=== PATIENT | male | born 1955 | race Caucasian/White ===

== ENCOUNTER 2016-11-23 06:27 | Inpatient (IN) | payer OTHER ==
[2016-11-23] MEDS ORDERED: SODIUM CHLORIDE 1,000 ML IV STA (06:38)
[2016-11-23] MEDS ORDERED: ROCEPHIN 1 GM in SODIUM CHLORIDE 50 ML IV STA (06:38)
[2016-11-23] MEDS ORDERED: DUONEB NEB STA ×2 (06:38→07:27)
[2016-11-23 06:42] LABS: ABG BASE EXCESS 1 (-2.0-2.0); ABG HCO3 25 (22.0-26.0); ABG PH 7.44 (7.35-7.45); ABG TCO2 26 (22.0-28.0)
--- NOTE | 2016-11-23 06:54 | ED.PDOC ---
General Stated Complaint: hes got fever, urinary frequency, sob, and diarrhea Time Seen by Physician: 06:35 Mode of Arrival: Walk-In Information Source: Patient, Family Exam Limitations: No limitations Nursing and Triage Documentation Reviewed and Agree: Yes <ROBERTO CONNER - Last Filed: 11/23/16 06:51> Stated Complaint: Fever, chills, diarrhea, urinary burning/frequency/pain x 4 days. Incontinence started today. Became more short of air than normally.[End] SICK FOUR DAYS, FEVER, UNCONTROLLABLE DIARRHEA, URGENCY AND FREQUENCY, INCONTINENCE. RESPIRATORY DIFFICULTY NOTED[End]diarrhea resolved with generic OTC meds, frequency and urgensy present since he was a child <JESSE JAIME JR - Last Filed: 11/23/16 20:19> ED Provider: Dr. JESSE JAIME JR Chief Complaint: Fever Primary Care Provider: [facility] Miscellaneous Complaint Exam - Febrile Illness/Adult Complaint/Exam Onset/Duration: 24hrs Symptoms Are: Still present Timing: Intermittent Initial Severity: Mild Current Severity: Moderate Aggravating: Reports: None Alleviating: Reports: None Associated Signs and Symptoms: Reports: Short of air, Cough, Chills. Denies: Headache, Fluid intake, Sore throat, Nausea, Vomiting, Diaphoresis, Dysuria, Arthralgia, Stiff neck, Myalgia, Rash, Altered mental status Related History: Reports: Similar episode Pseudomonas Risk Factors: Reports: Chronic Lung Disease Serious Bacterial Infection Risk Factors: Reports: None Current Antibiotic Use: No Differential Diagnoses: Bacteremia, Fever of Unknown Origin, Pyelonephritis Quality Indicators For Pneumonia/CAP: Blood Cultures-SCU admit, Antibiotics in 6hr-admit, SpO2 assessed, Empiric Antibiotic Rx, Vital signs, Mental status assessed Quality Indicator For Non-Traumatic Chest Pain/Syncope: EKG Performed Patient Advised to Stop Smoking: No <ROBERTO CONNER - Last Filed: 11/23/16 06:51> Review of Systems - Review Of Systems Constitutional: Reports: Chills, Fever, Weakness, Sweats, Loss of appetite Eyes: Reports: No symptoms Ears, Nose, Mouth, Throat: Reports: No symptoms Respiratory: Reports: Cough Cardiac: Reports: No symptoms GI: Reports: Diarrhea, Nausea, Poor appetite : Reports: Dysuria, Frequency, Flank pain, Incontinence, Pain Musculoskeletal: Reports: No symptoms Skin: Reports: No symptoms Neurological: Reports: No symptoms Endocrine: Reports: No symptoms Hematologic/Lymphatic: Reports: No symptoms All Other Systems: Reviewed and Negative <ROBERTO CONNER - Last Filed: 11/23/16 06:51> Past Medical History - Past Medical History Endocrine: Reports: Unknown Cardiovascular: Reports: Unknown Respiratory: Reports: COPD Hematological: Reports: Unknown Gastrointestinal: Reports: Unknown Genitourinary: Reports: Unknown Neuro/Psych: Reports: Unknown Musculoskeletal: Reports: Unknown Cancer: Reports: Unknown - Surgical History General Surgical History: Reports: Unknown - Family History Family History: Reports: Unknown - Social History Smoking Status: Current every day smoker Hx Substance Use: No Alcohol Screening: None Lives: With family - Immunizations Tetanus Shot up to Date: Yes <RAZROSIOROBERTO - Last Filed: 11/23/16 06:51> - Past Medical History Endocrine: Reports: None Cardiovascular: Reports: None Respiratory: Reports: COPD Hematological: Reports: None Gastrointestinal: Reports: None Genitourinary: Reports: Kidney stones ( 2014?-never evaluated) Musculoskeletal: Reports: Arthritis Cancer: Reports: None - Surgical History General Surgical History: Reports: Tonsillectomy (AND right tympanoplasty), Orthopedic (bilateral hip replacement ( and bilateral revisions); left reverse shoulder replacement; right knee arthroscopy), Back Surgery (L345?fusion) - Social History Smoking Status: Current every day smoker (only 5-6 a day now) Smoking Cessation Counseling Time: > 3 min - 10 min Lives: With family ( 14 years) <JESSE JAIME JR - Last Filed: 11/23/16 20:19> Physical Exam - Physical Exam Appearance: Ill-appearing, No pain distress, Well-nourished Ill-appearing: Moderate Eyes: JAMIE, EOMI, Conjunctiva clear ENT: Ears normal, Nose normal, Oropharynx normal Respiratory: Airway patent, Breath sounds clear, Breath sounds equal, Respirations nonlabored Cardiovascular: RRR, Pulses normal, No rub, No murmur, Tachycardia GI/: Soft, Nontender, No masses, Bowel sounds normal, No Organomegaly Musculoskeletal: Normal strength, ROM intact, No edema, No calf tenderness Skin: Warm, Dry, Normal color Neurological: Sensation intact, Motor intact, Reflexes intact, Cranial nerves intact, Alert, Oriented Psychiatric: Affect appropriate, Mood appropriate <ROBERTO CONENR - Last Filed: 11/23/16 06:51> - Physical Exam Appearance: Ill-appearing, Thin Pain Distress: Mild Neck: Supple Respiratory: Airway patent, Breath sounds diminished Cardiovascular: RRR GI/: Soft, Bowel sounds hypoactive Musculoskeletal: Normal strength, ROM intact Skin: Warm, Pale Neurological: Sensation intact, Alert, Oriented Psychiatric: Affect appropriate <JESSE JAIME - Last Filed: 11/23/16 20:19> Physician Notification - Case Discussed Physician Notified: dr jaime Time of Notification: 06:57 <ROBERTO CONNER - Last Filed: 11/23/16 06:51> - Case Discussed Time of Notification: 07:18 (pt back from xray) <JESSE JAIME JR - Last Filed: 11/23/16 20:19> Critical Care Note - Critical Care Note Total Time (mins): 60 <JESSE JAIME JR - Last Filed: 11/23/16 20:19> Course - Course Hematology/Chemistry: 11/23/16 07:00 11/23/16 07:00 <JESSE JAIME JR - Last Filed: 11/23/16 20:19> - Course Orders, Labs, Meds: Lab Review 11/23/16 11/23/16 11/23/16 06:37 07:00 07:05 WBC 8.70 RBC 5.39 Hgb 13.6 L Hct 41.5 L MCV 77.0 L MCH 25.2 L MCHC 32.8 RDW Coeff of Kathy 15.2 H Plt Count 233 Immature Gran % (Auto) 0.5 Neut % (Auto) 77.8 Lymph % (Auto) 15.2 Antelope % (Auto) 6.2 Eos % (Auto) 0.0 Baso % (Auto) 0.3 Immature Gran # (Auto) 0.0 Neut # 6.8 Lymph # 1.3 Antelope # 0.5 Eos # 0.0 Baso # 0.0 Puncture Site L rad O2 Saturation 81.0 L ABG pH 7.44 ABG pCO2 37.0 ABG pO2 44.0 L* ABG HCO3 25 ABG Total CO2 26 ABG Base Excess 1 Herve Test + FiO2 % 21.0 Sodium 128 L Potassium 4.5 Chloride 95 L Carbon Dioxide 25 Anion Gap 12.5 BUN 35 H Creatinine 1.23 H Estimated GFR (MDRD) 60.00 BUN/Creatinine Ratio 28.45 Glucose 185 H Lactic Acid 10.0 Calcium 8.9 Total Bilirubin 0.34 AST 44 H ALT 21 Alkaline Phosphatase 74 Total Protein 7.5 Albumin 3.0 L Globulin 4.5 Albumin/Globulin Ratio 0.67 Amylase 59 Lipase 30 Procalcitonin 0.58 Urine Color Urine Clarity Urine pH Ur Specific [place] Urine Protein Urine Glucose (UA) Urine Ketones Urine Blood Urine Nitrite Urine Bilirubin Urine Urobilinogen Ur Leukocyte Esterase Urine Microscopic RBC Urine Microscopic WBC Ur Squamous Epith Cells Triple Phos Crystals Urine Bacteria Influenza A (Rapid) Negative Influenza B (Rapid) Negative 11/23/16 07:25 WBC RBC Hgb Hct MCV MCH MCHC RDW Coeff of Kathy Plt Count Immature Gran % (Auto) Neut % (Auto) Lymph % (Auto) Antelope % (Auto) Eos % (Auto) Baso % (Auto) Immature Gran # (Auto) Neut # Lymph # Antelope # Eos # Baso # Puncture Site O2 Saturation ABG pH ABG pCO2 ABG pO2 ABG HCO3 ABG Total CO2 ABG Base Excess Herve Test FiO2 % Sodium Potassium Chloride Carbon Dioxide Anion Gap BUN Creatinine Estimated GFR (MDRD) BUN/Creatinine Ratio Glucose Lactic Acid Calcium Total Bilirubin AST ALT Alkaline Phosphatase Total Protein Albumin Globulin Albumin/Globulin Ratio Amylase Lipase Procalcitonin Urine Color [place] Urine Clarity Cloudy Urine pH 7.5 Ur Specific [place] 1.020 Urine Protein 3+ Urine Glucose (UA) Trace Urine Ketones Trace Urine Blood 1+ Urine Nitrite Positive Urine Bilirubin 1+ Urine Urobilinogen 2.0 Ur Leukocyte Esterase 3+ Urine Microscopic RBC 2-5 Urine Microscopic WBC 20-30 Ur Squamous Epith Cells Not present Triple Phos Crystals 2+ Urine Bacteria 4+ Influenza A (Rapid) Influenza B (Rapid) Orders Category Date Time Status ADMIT PATIENT INPATIENT .TO [facility] (MONITORED BED) ADMISSION 11/23/16 08: 21 Active ABG DRAW REQUEST Stat CARDIO 11/23/16 06:37 Completed EKG-(ED ONLY) Stat CARDIO 11/23/16 06:37 Completed NEBULIZER TREATMENT Routine CARDIO 11/23/16 08:31 Active NEBULIZER TREATMENT Stat CARDIO 11/23/16 06:38 Completed NEBULIZER TREATMENT Stat CARDIO 11/23/16 07:27 Completed OXYGEN Routine CARDIO 11/23/16 08:26 Active ACTIVITY .Early Mobilization for VTE Prevention CARE 11/23/16 08:21 Active BLOOD GLUCOSE MONITORING 0630,1100,1700,2100 CARE 11/23/16 08:27 Active INTAKE & OUTPUT Q8HR CARE 11/23/16 08:21 Active TELEMETRY MONITORING TELE CARE 11/23/16 08:26 Active VITAL SIGNS Q4HR CARE 11/23/16 08:21 Active REGULAR DIET DIETARY 11/23/16 Lunch Ordered Block Tester [ED APPLICATION SYSTEMS ARCHITECT APPLIED] .ONCE EMERGENCY 11/23/16 06:40 Active ED BLADDER SCAN .ONCE EMERGENCY 11/23/16 06:39 Active Sosa [ED CATHETER INSERTION AND CARE] .ONCE EMERGENCY 11/23/16 07:20 Active IV [ED IV/MEDIPORT/POWERPORT] .ONCE EMERGENCY 11/23/16 06:38 Active OXYGEN [ED APPLY O2] .ONCE EMERGENCY 11/23/16 07:01 Active ABG Stat LAB 11/23/16 06:37 Completed AMYLASE Stat LAB 11/23/16 07:00 Completed BLOOD CULTURE Stat LAB 11/23/16 07:00 Received CBC W/ AUTO DIFF DAILY@0600 LAB 11/24/16 06:00 Ordered CBC W/ AUTO DIFF DAILY@0600 LAB 11/25/16 06:00 Ordered CBC W/ AUTO DIFF DAILY@0600 LAB 11/26/16 06:00 Ordered CBC W/ AUTO DIFF DAILY@0600 LAB 11/27/16 06:00 Ordered CBC W/ AUTO DIFF DAILY@0600 LAB 11/28/16 06:00 Ordered CBC W/ AUTO DIFF DAILY@0600 LAB 11/29/16 06:00 Ordered CBC W/ AUTO DIFF DAILY@0600 LAB 11/30/16 06:00 Ordered CBC W/ AUTO DIFF DAILY@0600 LAB 12/01/16 06:00 Ordered CBC W/ AUTO DIFF DAILY@0600 LAB 12/02/16 06:00 Ordered CBC W/ AUTO DIFF DAILY@0600 LAB 12/03/16 06:00 Ordered CBC W/ AUTO DIFF DAILY@0600 LAB 12/04/16 06:00 Ordered CBC W/ AUTO DIFF DAILY@0600 LAB 12/05/16 06:00 Ordered CBC W/ AUTO DIFF DAILY@0600 LAB 12/06/16 06:00 Ordered CBC W/ AUTO DIFF DAILY@0600 LAB 12/07/16 06:00 Ordered CBC W/ AUTO DIFF DAILY@0600 LAB 12/08/16 06:00 Ordered CBC W/ AUTO DIFF DAILY@0600 LAB 12/09/16 06:00 Ordered CBC W/ AUTO DIFF DAILY@0600 LAB 12/10/16 06:00 Ordered CBC W/ AUTO DIFF DAILY@0600 LAB 12/11/16 06:00 Ordered CBC W/ AUTO DIFF DAILY@0600 LAB 12/12/16 06:00 Ordered CBC W/ AUTO DIFF DAILY@0600 LAB 12/13/16 06:00 Ordered CBC W/ AUTO DIFF Stat LAB 11/23/16 07:00 Completed COMPREHENSIVE METABOLIC PANEL DAILY@0600 LAB 11/24/16 06:00 Ordered COMPREHENSIVE METABOLIC PANEL DAILY@0600 LAB 11/25/16 06:00 Ordered COMPREHENSIVE METABOLIC PANEL DAILY@0600 LAB 11/26/16 06:00 Ordered COMPREHENSIVE METABOLIC PANEL DAILY@0600 LAB 11/27/16 06:00 Ordered COMPREHENSIVE METABOLIC PANEL DAILY@0600 LAB 11/28/16 06:00 Ordered COMPREHENSIVE METABOLIC PANEL DAILY@0600 LAB 11/29/16 06:00 Ordered COMPREHENSIVE METABOLIC PANEL DAILY@0600 LAB 11/30/16 06:00 Ordered COMPREHENSIVE METABOLIC PANEL DAILY@0600 LAB 12/01/16 06:00 Ordered COMPREHENSIVE METABOLIC PANEL DAILY@0600 LAB 12/02/16 06:00 Ordered COMPREHENSIVE METABOLIC PANEL DAILY@0600 LAB 12/03/16 06:00 Ordered COMPREHENSIVE METABOLIC PANEL DAILY@0600 LAB 12/04/16 06:00 Ordered COMPREHENSIVE METABOLIC PANEL DAILY@0600 LAB 12/05/16 06:00 Ordered COMPREHENSIVE METABOLIC PANEL DAILY@0600 LAB 12/06/16 06:00 Ordered COMPREHENSIVE METABOLIC PANEL DAILY@0600 LAB 12/07/16 06:00 Ordered COMPREHENSIVE METABOLIC PANEL DAILY@0600 LAB 12/08/16 06:00 Ordered COMPREHENSIVE METABOLIC PANEL DAILY@0600 LAB 12/09/16 06:00 Ordered COMPREHENSIVE METABOLIC PANEL DAILY@0600 LAB 12/10/16 06:00 Ordered COMPREHENSIVE METABOLIC PANEL DAILY@0600 LAB 12/11/16 06:00 Ordered COMPREHENSIVE METABOLIC PANEL DAILY@0600 LAB 12/12/16 06:00 Ordered COMPREHENSIVE METABOLIC PANEL DAILY@0600 LAB 12/13/16 06:00 Ordered COMPREHENSIVE METABOLIC PANEL Stat LAB 11/23/16 07:00 Completed LACTIC ACID Stat LAB 11/23/16 07:00 Completed LIPASE Stat LAB 11/23/16 07:00 Completed MOLECULAR GROUP A STREP Stat LAB 11/23/16 07:05 Results OCCULT BLOOD, STOOL Stat LAB 11/23/16 07:47 Uncollected PROCALCITONIN Stat LAB 11/23/16 07:00 Completed RAPID FLU A/B Stat LAB 11/23/16 07:05 Completed STREP SCREEN Stat LAB 11/23/16 07:05 Results URINALYSIS C & S IF INDICATED Stat LAB 11/23/16 07:25 Completed URINE CULTURE Routine LAB 11/23/16 07:25 Received 0.9 % Sodium Chloride [Saline Flush] MEDS 11/23/16 06:38 Active 1 syr IVF PRN PRN Acetaminophen [Tylenol] MEDS 11/23/16 08:21 Active 650 mg PO Q4H PRN Albuterol Sulfate [Proair Hfa] MEDS 11/23/16 08:30 Active 1 - 2 puff IH Q4-6H PRN Budesonide/Formoterol Fumarate [Symbicort 160-4.5 Mcg MEDS 11/23/16 09:00 Active Inhaler] 1 puff IH BID Ceftriaxone Sodium [Rocephin] MEDS 11/23/16 07:48 Discontinued 1 gm .ROUTE .STK-MED ONE Ceftriaxone Sodium [Rocephin] 1 gm MEDS 11/23/16 06:38 Discontinued 0.9 % Sodium Chloride [Sodium Chloride] 50 ml IV ONCE Dexamethasone 4 mg/ml Inj [Decadron 4 mg/ml Sdv] MEDS 11/23/16 08:01 Discontinued 8 mg IVP ONCE STA Enoxaparin Sodium [Lovenox] MEDS 11/23/16 09:00 Active 40 mg SUBCUT DAILY Ipratropium/Albuterol Neb [Duoneb] MEDS 11/23/16 06:38 Discontinued 1 vial NEB ONCE STA Ipratropium/Albuterol Neb [Duoneb] MEDS 11/23/16 07:27 Discontinued 1 vial NEB ONCE STA Ipratropium/Albuterol Neb [Duoneb] MEDS 11/23/16 12:00 Active 1 vial NEB RTQ6H Lidocaine HCl [Uro-Jet] MEDS 11/23/16 07:20 Discontinued 10 ml MUCOUSMEMB ONCE STA Nicotine 21 mg [Nicoderm 21 mg] MEDS 11/23/16 07:33 Discontinued 1 patch TD ONCE STA Sodium Chloride 0.9% [Sodium Chloride] 1,000 ml MEDS 11/23/16 06:38 Discontinued IV 125 mls/hr Sodium Chloride 0.9% [Sodium Chloride] 1,000 ml MEDS 11/23/16 08:30 Active IV 75 mls/hr Sodium Chloride 0.9% [Sodium Chloride] 500 ml MEDS 11/23/16 07:19 Discontinued IV BOLUS Tiotropium [place] [Spiriva] MEDS 11/23/16 09:00 Active 1 cap IH DAILY RESUSCITATION STATUS Routine OTHERS 11/23/16 08:[address] ABDOMEN/PELVIS WO CONTRAST Stat RADS 11/23/16 06:[address] CHEST W/O CONTRAST Stat RADS 11/23/16 06:39 Completed Medications Generic Name Dose Route Start Last Admin Trade Name Freq PRN Reason Stop Dose Admin Acetaminophen 650 mg 11/23/16 08:21 Tylenol PO Q4H PRN Mild Pain Albuterol Sulfate 1 - 2 puff 11/23/16 08:30 Proair Hfa IH 11/29/16 23:59 Q4-6H PRN Wheezing Albuterol/Ipratropium 1 vial 11/23/16 12:00 11/23/16 17:19 Duoneb NEB 1 vial RTQ6H CHRISTIAN Administration Budesonide/Formoterol Fumarate 1 puff 11/23/16 09:00 11/23/16 20:12 Symbicort 160-4.5 Mcg Inhaler IH 1 puff BID CHRISTIAN Administration Enoxaparin Sodium 40 mg 11/23/16 09:00 11/23/16 10:16 Lovenox SUBCUT 40 mg DAILY CHRISTIAN Administration Sodium Chloride 1,000 mls @ 75 mls/hr 11/23/16 08:30 11/23/16 15:32 Sodium Chloride IV 75 mls/hr .[id number] CHRISTIAN Administration Azithromycin 500 mg/ Sodium 250 mls @ 125 mls/hr 11/24/16 09:00 Chloride IV DAILY CHRISTIAN Ceftriaxone Sodium 1 gm/ 50 mls @ 75 mls/hr 11/24/16 09:00 Sodium Chloride IV DAILY CHRISTIAN Insulin Human Regular 0 unit 11/23/16 12:28 11/23/16 20:12 Humulin R SUBCUT 6 unit PRN PRN Administration Hyperglycemica Protocol Phenazopyridine HCl 200 mg 11/23/16 08:33 Pyridium PO 11/24/16 21:01 TID PRN Abdominal Pain Sodium Chloride 1 syr 11/23/16 06:38 11/23/16 06:40 Saline Flush IVF 1 syr PRN PRN Administration To flush IV Tiotropium [place] 1 cap 11/23/16 09:00 11/23/16 10:16 Spiriva IH 1 cap DAILY CHRISTIAN Administration Discontinued Medications Generic Name Dose Route Start Last Admin Trade Name Freq PRN Reason Stop Dose Admin Albuterol/Ipratropium 1 vial 11/23/16 06:38 11/23/16 06:35 Duoneb NEB 11/23/16 06:39 1 vial ONCE STA Administration Albuterol/Ipratropium 1 vial 11/23/16 07:27 11/23/16 07:35 Duoneb NEB 11/23/16 07:28 1 vial ONCE STA Administration Dexamethasone Sodium Phosphate 8 mg 11/23/16 08:01 11/23/16 08:16 Decadron 4 Mg/Ml Sdv IVP 11/23/16 08:02 8 mg ONCE STA Administration Ceftriaxone Sodium 1 gm/ 50 mls @ 75 mls/hr 11/23/16 06:38 11/23/16 08:03 Sodium Chloride IV 11/23/16 07:17 75 mls/hr ONCE STA Administration Sodium Chloride 1,000 mls @ 125 mls/hr 11/23/16 06:38 11/23/16 08:16 Sodium Chloride IV 11/23/16 14:37 125 mls/hr .Q8H STA Administration Sodium Chloride 500 mls @ 1,000 mls/hr 11/23/16 07:19 11/23/16 07:47 Sodium Chloride IV 11/23/16 07:48 1,000 mls/hr BOLUS STA Administration Azithromycin 500 mg/ Sodium 250 mls @ 125 mls/hr 11/23/16 08:32 11/23/16 10: 15 Chloride IV 11/23/16 10:31 125 mls/hr ONCE STA Administration Lidocaine HCl 10 ml 11/23/16 07:20 11/23/16 08:23 Uro-Jet MUCOUSMEMB 11/23/16 07:21 Not Given ONCE STA Nicotine 1 patch 11/23/16 07:33 11/23/16 08:23 Nicoderm 21 Mg TD 11/23/16 07:34 Not Given ONCE STA Phenazopyridine HCl 100 mg 11/23/16 08:33 Pyridium PO 11/23/16 08:34 ONCE STA Vital Signs: Temp Pulse Resp BP Pulse Ox 11/23/16 07:53 101.8 F H 113 H 24 85/71 L 90 L 11/23/16 06:31 103.8 F H 125 H 32 H 111/68 82 L Departure <ROBERTO CONNER - Last Filed: 11/23/16 06:51> - Departure Time of Disposition: 08:20 Pt referred to PMD for follow-up: No (hospitalist) <JESSE JAIME JR - Last Filed: 11/23/16 20:19> - Departure Disposition: ADMITTED INPATIENT Discharge Problem: UTI (urinary tract infection) Qualifiers: Urinary tract infection type: acute cystitis Hematuria presence: without hematuria Qualifier Code: (N30.00) Acute cystitis without hematuria COPD (chronic obstructive pulmonary disease) Qualifiers: Emphysema type: unspecified Pneumonia Qualifiers: Pneumonia type: due to unspecified organism Laterality: bilateral Lung location : lower lobe of lung Qualifier Code: (J18.9) Pneumonia, unspecified organism Condition: Stable Allergies/Adverse Reactions: Allergies No Known Allergies Allergy (Verified 11/23/16 06:42)
[2016-11-23 07:10] LABS: BASOPHILS % (AUTO) 0.3 % (0.0-3.0); HEMATOCRIT 41.5 % (42.0-52.0); HEMOGLOBIN 13.6 g/dl (14.0-18.0); IMMATURE GRANULOCYTE % (AUTO) 0.5 % (0.0-5.0); LYMPHOCYTES # (AUTO) 1.3 K/uL (0.60-3.4); LYMPHOCYTES % (AUTO) 15.2 (10.0-50.0); MEAN CORPUSCULAR HEMOGLOBIN 25.2 pg (27.0-31.0); MEAN CORPUSCULAR HGB CONC 32.8 (31.8-35.4); MONOCYTES # (AUTO) 0.5 K/uL (0.4-2.0); MONOCYTES % (AUTO) 6.2 (0-10); NEUTROPHILS # (AUTO) 6.8 K/ul (2.0-6.9); NEUTROPHILS % (AUTO) 77.8; PLATELET COUNT 233 10^3/uL (140-440); RED BLOOD COUNT 5.39 10^6/ul (4.70-6.10)
[2016-11-23] MEDS ORDERED: SODIUM CHLORIDE 500 ML IV STA (07:19)
[2016-11-23] MEDS ORDERED: URO-JET MUCOUSMEMB STA (07:20)
[2016-11-23 07:30] LABS: FLU INTERNAL QC INTERNAL QC VALID; RAPID FLU A NEGATIVE (NEGATIVE); RAPID FLU B NEGATIVE (NEGATIVE)
[2016-11-23 07:31] LABS: CALCIUM 8.9 mg/dL (8.2-10.2); POTASSIUM 4.5 mmol/L (3.5-5.1); TOTAL PROTEIN 7.5 g/dL (5.8-8.1)
[2016-11-23 07:32] LABS: ALBUMIN/GLOBULIN RATIO 0.67; ANION GAP 12.5; BILIRUBIN,TOTAL 0.34 mg/dL (0.00-1.20); BUN/CREATININE RATIO 28.45; CREATININE 1.23 mg/dL (0.60-1.10)
[2016-11-23] MEDS ORDERED: NICODERM 21 MG TD STA (07:33)
--- NOTE | 2016-11-23 07:34 | CT ---
EXAM: CT Abdomen without contrast. CT Pelvis without contrast. HISTORY: Diarrhea. Fartun area. COMPARISON: None available. TECHNIQUE: Multiple axial images of the abdomen and pelvis were obtained without intravenous contra st. Images were reformatted in the coronal plane. FINDINGS: Please note that evaluation of the abdominal and pelvic structures is limited due to lack of intravenous contrast. Bronchial thickening seen in both lung bases with scattered small nodular densities bilaterally, gre ater in the left lower lobe with a more focal nodular area of consolidation measuring 2.9 x 2.5 cm i n the anterior left lung base on axial image 12. Degenerative changes present in the spine. There has been bilateral hip arthroplasty. The liver, gallbladder, pancreas, spleen, adrenal glands, and kidneys demonstrate normal contour. N o calcified renal stones or hydronephrosis detected. The bowel is normal in course and caliber without evidence for obstruction or inflammatory process. Colonic diverticulosis noted. The appendix is normal. There is diffuse urinary bladder wall thick ening which is not fully characterized due to beam hardening artifact from hip arthroplasty hardware . Mild inflammation surrounds the urinary bladder. No free fluid or free air identified. Atherosc lerotic calcifications are present. IMPRESSION: 1. Urinary bladder wall thickening suggesting cystitis. Follow-up is recommended as other etiologi es of bladder wall thickening not excluded. 2. Colonic diverticulosis. 3. Bibasilar bronchial thickening and nodular densities with more dominant left basilar consolidati on could represent pneumonitis. Refer to chest CT report for details.
--- NOTE | 2016-11-23 07:35 | CT ---
EXAM: CT chest without contrast. HISTORY: Cough, dyspnea. COMPARISON: 08/06/2012. TECHNIQUE: Multiple axial images of the chest were obtained without intravenous contrast. Images w ere reformatted in the sagittal and coronal planes. FINDINGS: Bilateral bronchial thickening noted with numerous scattered random and centrilobular nod ules throughout both lungs. There are multiple more discrete foci of consolidation present, largest measuring 2.9 x 2.5 cm in the anterior left lower lobe on axial image 65. No pleural effusion or p neumothorax identified. Evaluation for lymphadenopathy is limited due to lack of intravenous contrast. Subcarinal lymph nod e measures up to 1.3 cm short axis on axial image 37. Heart size is normal. There is no pericardial effusion. Atherosclerotic calcifications are present . Limited images of the upper abdomen demonstrate no acute finding. There has been previous left shou lder arthroplasty. Degenerative changes present throughout the spine. IMPRESSION: Diffuse bilateral bronchial thickening, scattered nodules and areas of consolidation likely represen ting pneumonitis. Follow-up chest CT in 3 months recommended for reassessment.
[2016-11-23 07:37] LABS: BILIRUBIN,URINE 1+ (NEGATIVE); KETONES,URINE Trace (NEGATIVE); LEUKOCYTE ESTERASE ,URINE 3+ (NEGATIVE); NITRITE,URINE Positive (NEGATIVE); PH,URINE 7.5 (5-9); PROTEIN,URINE 3+ (NEGATIVE); URINE, BLOOD 1+ (NEGATIVE)
[2016-11-23 07:40] LABS: ADD URINE MICROSCOPIC YES
[2016-11-23 07:42] LABS: BACTERIA,URINE 4+ (NOT PRESENT)
[2016-11-23] MEDS ORDERED: ROCEPHIN ONE (07:48)
[2016-11-23] MEDS ORDERED: DECADRON 4 MG/ML SDV IVP STA (08:01)
[2016-11-23] MEDS ORDERED: TYLENOL PO PRN (08:21)
[2016-11-23] MEDS ORDERED: PROAIR HFA IH PRN (08:30)
[2016-11-23] MEDS ORDERED: ZITHROMAX 500 MG in SODIUM CHLORIDE 250 ML IV STA (08:32)
[2016-11-23] MEDS ORDERED: PYRIDIUM PO STA (08:33)
[2016-11-23] MEDS ORDERED: PYRIDIUM PO PRN (08:33)
[2016-11-23 09:40] VITALS: BMI 22.7
[2016-11-23] MEDS: LOVENOX SUBCUT SCH (10:16)
[2016-11-23] MEDS: SPIRIVA IH SCH (10:16)
[2016-11-23] MEDS: DUONEB NEB SCH ×3 (11:17→23:04)
[2016-11-23] MEDS: SYMBICORT 160-4.5 MCG INHALER IH SCH ×2 (15:32→20:12)
[2016-11-23] MEDS: SODIUM CHLORIDE 1,000 ML IV SCH (15:32)
[2016-11-23] MEDS: HUMULIN R SUBCUT PRN ×2 (18:05→20:12)
[2016-11-24] MEDS: SODIUM CHLORIDE 1,000 ML IV SCH ×2 (03:04→20:26)
[2016-11-24 04:47] LABS: HEMATOCRIT 38.3 % (42.0-52.0); HEMOGLOBIN 12.3 g/dl (14.0-18.0); MEAN CORPUSCULAR HEMOGLOBIN 25.6 pg (27.0-31.0); MEAN CORPUSCULAR HGB CONC 32.1 (31.8-35.4); MEAN CORPUSCULAR VOLUME 79.6 fl (80.0-94.0); PLATELET COUNT 231 10^3/uL (140-440); RED BLOOD COUNT 4.81 10^6/ul (4.70-6.10); WHITE BLOOD COUNT 10.61 K/ul (4.2-10.2)
[2016-11-24 05:03] LABS: ALBUMIN 2.6 g/dL (3.4-5.0); ALBUMIN/GLOBULIN RATIO 0.58; BILIRUBIN,TOTAL 0.18 mg/dL (0.00-1.20); BUN/CREATININE RATIO 27.77; CALCIUM 9.2 mg/dL (8.2-10.2); CREATININE 0.9 mg/dL (0.60-1.10); TOTAL PROTEIN 7.1 g/dL (5.8-8.1)
[2016-11-24 05:10] LABS: ANISOCYTOSIS NOT PRESENT (NOT PRESENT)
[2016-11-24] MEDS: DUONEB NEB SCH ×4 (05:15→23:21)
[2016-11-24] MEDS: HUMULIN R SUBCUT PRN ×4 (05:41→20:54)
[2016-11-24] MEDS ORDERED: DECADRON 4 MG/ML SDV IVP STA (08:04)
[2016-11-24] MEDS: ROCEPHIN 1 GM in SODIUM CHLORIDE 50 ML IV SCH (08:31)
[2016-11-24] MEDS: LOVENOX SUBCUT SCH (08:35)
[2016-11-24] MEDS: PYRIDIUM PO SCH ×3 (08:37→20:53)
[2016-11-24] MEDS: SYMBICORT 160-4.5 MCG INHALER IH SCH ×2 (08:38→20:53)
[2016-11-24] MEDS: SPIRIVA IH SCH (08:40)
[2016-11-24] MEDS ORDERED: PYRIDIUM PO SCH (09:00)
[2016-11-24] MEDS: ZITHROMAX 500 MG in SODIUM CHLORIDE 250 ML IV SCH (09:40)
--- NOTE | 2016-11-24 11:11 | PCM.PROG ---
Attending Provider: ATTENDING PROVIDER: Dr. ADALBERTO RAMOS DATE OF SERVICE: 11/24/16 SUBJECTIVE: This 61 year old WHITE/ M was hospitalized 11/23/16. The patient is admitted with COPD exacerbation secondary to pneumonia, fever and UTI. He is still having problems with shortness of breath, cough and congestion. The patient states that it hurts to urinate. Blood count showed bands of 14. No fever. REVIEW OF SYSTEMS: CONSTITUTIONAL: No fever, no chills. ENDOCRINE: No weight loss or weight gain. HEENT: No sinus drainage, no sore throat. CVS: No angina symptoms. No CHF symptoms. No palpitations. No atypical chest pain for CAD. Shortness of breath. RESPIRATORY: Cough and congestion. No hemoptysis. GI: No melena. No abdominal pain. No nausea, no vomiting. : Polyria, burning and difficulty with urination. No hematuria. SKIN: No rash. No wounds. MUSCULOSKELETAL: No pain. MUTUEL MACHINE OPERATOR: No blackout, no dizziness. No headache. No double vision. PSYCHIATRIC: Not anxious; no depression. No suicidal thoughts. No homicidal thoughts. PHYSICAL EXAMINATION: GENERAL: Lying in bed in no distress. VITAL SIGNS: Temperature 97.4 F, Pulse 95, Respiratory Rate 24, BP 135/78, Pulse Ox 90% HEENT: Normocephalic, atraumatic. Mucosa is dry, pallor positive. NECK: No JVP, no carotid bruit. No lymphadenopathy. CARDIAC: S1, S2, no S3. No murmur, gallop or regurgitation. LUNGS: Decreased breath sounds with diffuse wheezing. ABDOMEN: Soft, non-tender. Bowel sounds active. No rigidity, guarding or CVA tenderness. EXTREMITIES: No clubbing, cyanosis or edema. NEUROLOGIC: Awake, alert and oriented x3. LYMPHATIC: No palpable lymph nodes SKIN: Not dry. Intact. MUSCULOSKELETAL: No joint swelling. LAB REVIEW: 11/24/16 04:14 11/24/16 04:14 11/24/16 04:14: WBC 10.61 H, RBC 4.81, Hgb 12.3 L, Hct 38.3 L, MCV 79.6 L, MCH 25.6 L, MCHC 32.1, RDW Coeff of Kathy 15.6 H, Plt Count 231, Neutrophils % (Manual ) 79.0 H, Band Neutrophils % 14.0 H, Lymphocytes % (Manual) 4.0 L, Monocytes % ( Manual) 2.0, Metamyelocytes % 1.0, Sodium 138, Potassium 5.0, Chloride 103, Carbon Dioxide 29, Anion Gap 11.0, BUN 25 H, Creatinine 0.90, Estimated GFR ( MDRD) 86.00, BUN/Creatinine Ratio 27.77, Glucose 151 H, Calcium 9.2, Total Bilirubin 0.18, AST 34, ALT 20, Alkaline Phosphatase 76, Total Protein 7.1, Albumin 2.6 L, Globulin 4.5, Albumin/Globulin Ratio 0.58 ASSESSMENT: 1. COPD EXACERBATION SECONDARY TO BILATERAL PNEUMONIA. 2. HYPOXEMIA SECONDARY TO ABOVE. 3. UTI. PLAN: 1. Rocephin 2. Duonebs 3. Decadron 4. IV fluids 75 mL/hr 5. Pyridium changed to 300 mg t.i.d. 6. Out of bed to chair 7. Titrate oxygen Plan and coordination of the patient's care discussed in the presence of Outer Diameter Technician and nurse. CONDITION: Stable SCRIBED BY: NICOLE CAMARENA Linux Kernel Developer scribed while in presence of service performed by Dr. ADALBERTO RAMOS on 11/24/16 ([id number])
[2016-11-25] MEDS: TORADOL IVP SCH ×4 (00:46→21:00)
[2016-11-25 04:48] LABS: BASOPHILS % (AUTO) 0.1 % (0.0-3.0); HEMATOCRIT 38.2 % (42.0-52.0); HEMOGLOBIN 11.9 g/dl (14.0-18.0); IMMATURE GRANULOCYTE % (AUTO) 0.8 % (0.0-5.0); LYMPHOCYTES # (AUTO) 1.3 K/uL (0.60-3.4); MEAN CORPUSCULAR HEMOGLOBIN 25.2 pg (27.0-31.0); MEAN CORPUSCULAR HGB CONC 31.2 (31.8-35.4); MEAN CORPUSCULAR VOLUME 80.9 fl (80.0-94.0); MONOCYTES # (AUTO) 0.6 K/uL (0.4-2.0); MONOCYTES % (AUTO) 5.8 (0-10); NEUTROPHILS # (AUTO) 8.6 K/ul (2.0-6.9); NEUTROPHILS % (AUTO) 81.3; PLATELET COUNT 260 10^3/uL (140-440); RED BLOOD COUNT 4.72 10^6/ul (4.70-6.10)
[2016-11-25 05:21] LABS: ALBUMIN 2.5 g/dL (3.4-5.0); ALBUMIN/GLOBULIN RATIO 0.58; ANION GAP 12.9; BILIRUBIN,TOTAL 0.19 mg/dL (0.00-1.20); BUN/CREATININE RATIO 32.14; CALCIUM 9.1 mg/dL (8.2-10.2); CREATININE 0.84 mg/dL (0.60-1.10); POTASSIUM 4.9 mmol/L (3.5-5.1); TOTAL PROTEIN 6.8 g/dL (5.8-8.1)
[2016-11-25] MEDS: DUONEB NEB SCH ×4 (05:41→23:09)
[2016-11-25] MEDS: SODIUM CHLORIDE 1,000 ML IV SCH ×3 (07:41→14:14)
[2016-11-25] MEDS: ROCEPHIN 1 GM in SODIUM CHLORIDE 50 ML IV SCH (09:46)
[2016-11-25] MEDS: SYMBICORT 160-4.5 MCG INHALER IH SCH ×2 (09:46→20:14)
[2016-11-25] MEDS: SPIRIVA IH SCH (09:46)
[2016-11-25] MEDS: FLOMAX PO SCH (09:47)
[2016-11-25] MEDS: PYRIDIUM PO SCH ×3 (09:47→20:14)
[2016-11-25] MEDS: LOVENOX SUBCUT SCH (09:47)
--- NOTE | 2016-11-25 10:51 | PCM.PROG ---
Attending Provider: ATTENDING PROVIDER: Dr. ADALBERTO RAMOS DATE OF SERVICE: 11/25/16 SUBJECTIVE: This 61 year old WHITE/ M was hospitalized 11/23/16. The patient complains of burning and frequency of urination, cough and congestion. Cough and congestion is better getting desaturation at night using 5L of oxygen. Will evaluate if patient needs oxygen. REVIEW OF SYSTEMS: CONSTITUTIONAL: No fever, no chills. ENDOCRINE: No weight loss or weight gain. HEENT: No sinus drainage, no sore throat. CVS: No angina symptoms. No CHF symptoms. No palpitations. No atypical chest pain for CAD. Shortness of breath. RESPIRATORY: Cough and congestion is better. No hemoptysis. GI: Suprapubic tenderness. No melena. No abdominal pain. No nausea, no vomiting. : Burning and frequency of urination. No hematuria. SKIN: No rash. No wounds. MUSCULOSKELETAL: No pain. CITY PLANNING AIDE: No blackout, no dizziness. No headache. No double vision. PSYCHIATRIC: Not anxious; no depression. No suicidal thoughts. No homicidal thoughts. PHYSICAL EXAMINATION: GENERAL: Lying in bed in no distress. VITAL SIGNS: Temperature 97.0 F, Pulse 93, Respiratory Rate 17, BP 131/77, Pulse Ox 95% HEENT: Normocephalic, atraumatic. Mucosa is dry, pallor positive. NECK: No JVP, no carotid bruit. No lymphadenopathy. CARDIAC: S1, S2, no S3. No murmur, gallop or regurgitation. LUNGS: Decreased basilar crackles. Clear to auscultation. ABDOMEN: Soft, non-tender. Bowel sounds active. Suprapubic tenderness positive. No rigidity, guarding or CVA tenderness. EXTREMITIES: No clubbing, cyanosis or edema. NEUROLOGIC: Awake, alert and oriented x3. LYMPHATIC: No palpable lymph nodes SKIN: Not dry. Intact. MUSCULOSKELETAL: No joint swelling. LAB REVIEW: 11/25/16 04:18 11/25/16 04:18 11/25/16 04:18: WBC 10.60 H, RBC 4.72, Hgb 11.9 L, Hct 38.2 L, MCV 80.9, MCH 25.2 L, MCHC 31.2 L, RDW Coeff of Kathy 15.6 H, Plt Count 260, Immature Gran % ( Auto) 0.8, Neut % (Auto) 81.3, Lymph % (Auto) 12.0, [place] % (Auto) 5.8, Eos % ( Auto) 0.0, Baso % (Auto) 0.1, Immature Gran # (Auto) 0.1, Neut # 8.6 H, Lymph # 1.3, [place] # 0.6, Eos # 0.0, Baso # 0.0, Sodium 141, Potassium 4.9, Chloride 103 , Carbon Dioxide 30, Anion Gap 12.9, BUN 27 H, Creatinine 0.84, Estimated GFR ( MDRD) 93.00, BUN/Creatinine Ratio 32.14, Glucose 135 H, Calcium 9.1, Total Bilirubin 0.19, AST 37, ALT 21, Alkaline Phosphatase 79, Total Protein 6.8, Albumin 2.5 L, Globulin 4.3, Albumin/Globulin Ratio 0.58 ASSESSMENT: 1. COPD EXACERBATION SECONDARY TO BILATERAL PNEUMONIA 2. HYPOXEMIA SECONDARY TO ABOVE 3. UTI PLAN: 1. Continue Rocephin, Azithromycin and Duonebs. 2. Flomax 0.4 mg. Plan and coordination of the patient's care discussed in the presence of Watch Supervisor and nurse. CONDITION: Stable SCRIBED BY: NICOLE CAMARENA Lockstitch Tunnel Elastic Operator scribed while in presence of service performed by Dr. ADALBERTO RAMOS on 11/25/16 ([id number])
[2016-11-25] MEDS: ZITHROMAX 500 MG in SODIUM CHLORIDE 250 ML IV SCH (10:52)
[2016-11-25] MEDS: HUMULIN R SUBCUT PRN ×2 (12:04→21:05)
[2016-11-25] MEDS ORDERED: TUSSIONEX PO PRN (12:58)
[2016-11-25] MEDS: TUSSIONEX PO SCH ×2 (13:56→20:14)
--- NOTE | 2016-11-25 14:18 | DI ---
EXAM: PA and lateral views of the chest HISTORY: Cough and congestion COMPARISON: Chest x-ray 07/24/[address] chest 11/23/2016 FINDINGS: The cardiomediastinal silhouette is normal. The lungs are hyperinflated with minimal sabina nting the costophrenic angles . There is no pneumothorax. There is no consolidation, nodule or mas s. The osseous structures demonstrate degenerative disease of the spine. IMPRESSION: No acute cardiopulmonary process with hyperinflation suggestive of chronic obstructive pulmonary disease.
[2016-11-26] MEDS: SODIUM CHLORIDE 1,000 ML IV SCH ×2 (01:27→14:37)
[2016-11-26 04:41] LABS: BASOPHILS % (AUTO) 0.1 % (0.0-3.0); EOSINOPHILS % (AUTO) 0.1 % (0.0-7.0); HEMATOCRIT 36.6 % (42.0-52.0); HEMOGLOBIN 11.2 g/dl (14.0-18.0); IMMATURE GRANULOCYTE % (AUTO) 0.7 % (0.0-5.0); LYMPHOCYTES # (AUTO) 2.4 K/uL (0.60-3.4); LYMPHOCYTES % (AUTO) 34.6 (10.0-50.0); MEAN CORPUSCULAR HEMOGLOBIN 25.2 pg (27.0-31.0); MEAN CORPUSCULAR HGB CONC 30.6 (31.8-35.4); MEAN CORPUSCULAR VOLUME 82.2 fl (80.0-94.0); MONOCYTES # (AUTO) 0.8 K/uL (0.4-2.0); MONOCYTES % (AUTO) 10.8 (0-10); NEUTROPHILS # (AUTO) 3.7 K/ul (2.0-6.9); NEUTROPHILS % (AUTO) 53.7; PLATELET COUNT 287 10^3/uL (140-440); RED BLOOD COUNT 4.45 10^6/ul (4.70-6.10); WHITE BLOOD COUNT 6.97 K/ul (4.2-10.2)
[2016-11-26 04:56] LABS: ALBUMIN 2.3 g/dL (3.4-5.0); ALBUMIN/GLOBULIN RATIO 0.59; ANION GAP 10.6; BILIRUBIN,TOTAL 0.19 mg/dL (0.00-1.20); BUN/CREATININE RATIO 28.39; CALCIUM 8.5 mg/dL (8.2-10.2); CREATININE 0.81 mg/dL (0.60-1.10); POTASSIUM 4.6 mmol/L (3.5-5.1); TOTAL PROTEIN 6.2 g/dL (5.8-8.1)
[2016-11-26] MEDS: TORADOL IVP SCH ×3 (04:56→20:12)
[2016-11-26] MEDS: DUONEB NEB SCH ×4 (05:03→23:36)
[2016-11-26] MEDS: SYMBICORT 160-4.5 MCG INHALER IH SCH ×2 (08:25→20:07)
[2016-11-26] MEDS: LOVENOX SUBCUT SCH (08:26)
[2016-11-26] MEDS: ROCEPHIN 1 GM in SODIUM CHLORIDE 50 ML IV SCH (08:26)
[2016-11-26] MEDS: TUSSIONEX PO SCH ×2 (08:26→20:07)
[2016-11-26] MEDS: FLOMAX PO SCH (08:26)
[2016-11-26] MEDS: SPIRIVA IH SCH (08:30)
[2016-11-26] MEDS: PROTONIX PO SCH (20:44)
[2016-11-26] MEDS: ZESTRIL PO SCH (20:44)
[2016-11-27] MEDS: SODIUM CHLORIDE 1,000 ML IV SCH (04:04)
[2016-11-27 05:02] LABS: BASOPHILS % (AUTO) 0.3 % (0.0-3.0); EOSINOPHILS # (AUTO) 0.1 K/ul (0.0-0.7); EOSINOPHILS % (AUTO) 1.6 % (0.0-7.0); HEMATOCRIT 38.4 % (42.0-52.0); HEMOGLOBIN 11.7 g/dl (14.0-18.0); IMMATURE GRANULOCYTE % (AUTO) 0.4 % (0.0-5.0); LYMPHOCYTES # (AUTO) 3.2 K/uL (0.60-3.4); LYMPHOCYTES % (AUTO) 43.9 (10.0-50.0); MEAN CORPUSCULAR HEMOGLOBIN 24.9 pg (27.0-31.0); MEAN CORPUSCULAR HGB CONC 30.5 (31.8-35.4); MEAN CORPUSCULAR VOLUME 81.9 fl (80.0-94.0); MONOCYTES # (AUTO) 0.7 K/uL (0.4-2.0); MONOCYTES % (AUTO) 10.1 (0-10); NEUTROPHILS # (AUTO) 3.2 K/ul (2.0-6.9); NEUTROPHILS % (AUTO) 43.7; PLATELET COUNT 332 10^3/uL (140-440); RED BLOOD COUNT 4.69 10^6/ul (4.70-6.10); WHITE BLOOD COUNT 7.36 K/ul (4.2-10.2)
[2016-11-27] MEDS: TORADOL IVP SCH ×3 (05:14→20:14)
[2016-11-27] MEDS: PROTONIX PO SCH (05:32)
[2016-11-27] MEDS: DUONEB NEB SCH ×4 (05:36→23:20)
[2016-11-27 06:00] LABS: ALBUMIN 2.5 g/dL (3.4-5.0); ALBUMIN/GLOBULIN RATIO 0.63; ANION GAP 10.3; BILIRUBIN,TOTAL 0.39 mg/dL (0.00-1.20); BUN/CREATININE RATIO 20.27; CALCIUM 8.9 mg/dL (8.2-10.2); CREATININE 0.74 mg/dL (0.60-1.10); POTASSIUM 4.3 mmol/L (3.5-5.1); TOTAL PROTEIN 6.5 g/dL (5.8-8.1)
[2016-11-27] MEDS: TUSSIONEX PO SCH ×2 (09:04→20:14)
[2016-11-27] MEDS: SPIRIVA IH SCH (09:04)
[2016-11-27] MEDS: SYMBICORT 160-4.5 MCG INHALER IH SCH ×2 (09:04→20:13)
[2016-11-27] MEDS: ZESTRIL PO SCH (09:05)
[2016-11-27] MEDS: FLOMAX PO SCH (09:05)
[2016-11-27] MEDS: LOVENOX SUBCUT SCH (09:05)
[2016-11-27] MEDS: ROCEPHIN 1 GM in SODIUM CHLORIDE 50 ML IV SCH (09:05)
[2016-11-27] MEDS ORDERED: LASIX IVP STA (16:37)
[2016-11-27] MEDS: HUMULIN R SUBCUT PRN (17:01)
[2016-11-28 04:50] LABS: BASOPHILS % (AUTO) 0.4 % (0.0-3.0); EOSINOPHILS # (AUTO) 0.3 K/ul (0.0-0.7); EOSINOPHILS % (AUTO) 3.2 % (0.0-7.0); HEMATOCRIT 42.1 % (42.0-52.0); HEMOGLOBIN 13.2 g/dl (14.0-18.0); IMMATURE GRANULOCYTE % (AUTO) 1.3 % (0.0-5.0); LYMPHOCYTES # (AUTO) 3.1 K/uL (0.60-3.4); MEAN CORPUSCULAR HEMOGLOBIN 25.2 pg (27.0-31.0); MEAN CORPUSCULAR HGB CONC 31.4 (31.8-35.4); MEAN CORPUSCULAR VOLUME 80.3 fl (80.0-94.0); MONOCYTES # (AUTO) 0.7 K/uL (0.4-2.0); MONOCYTES % (AUTO) 8.5 (0-10); NEUTROPHILS % (AUTO) 48.6; PLATELET COUNT 396 10^3/uL (140-440); RED BLOOD COUNT 5.24 10^6/ul (4.70-6.10); WHITE BLOOD COUNT 8.24 K/ul (4.2-10.2)
[2016-11-28] MEDS: DUONEB NEB SCH ×2 (05:00→11:05)
[2016-11-28 05:10] LABS: ALBUMIN 2.7 g/dL (3.4-5.0); ALBUMIN/GLOBULIN RATIO 0.63; BILIRUBIN,TOTAL 0.42 mg/dL (0.00-1.20); CALCIUM 9.3 mg/dL (8.2-10.2); CREATININE 0.85 mg/dL (0.60-1.10)
[2016-11-28] MEDS: TORADOL IVP SCH ×2 (05:11→13:55)
[2016-11-28] MEDS: PROTONIX PO SCH (05:33)
[2016-11-28] MEDS: ROCEPHIN 1 GM in SODIUM CHLORIDE 50 ML IV SCH (09:01)
[2016-11-28] MEDS: FLOMAX PO SCH (09:04)
[2016-11-28] MEDS: ZESTRIL PO SCH (09:04)
[2016-11-28] MEDS: LOVENOX SUBCUT SCH (09:05)
[2016-11-28] MEDS: SYMBICORT 160-4.5 MCG INHALER IH SCH (09:06)
[2016-11-28] MEDS: SPIRIVA IH SCH (09:06)
[2016-11-28] MEDS: TUSSIONEX PO SCH (09:08)
--- NOTE | 2016-11-28 09:49 | PCM.PROG ---
Attending Provider: ATTENDING PROVIDER: Dr. ADALBERTO RAMOS DATE OF SERVICE: 11/28/16 SUBJECTIVE: This 61 year old WHITE/ M was hospitalized 11/23/16. The patient states he is feeling better. No fever. Less cough. He gets easily short of breath with minimal exertion and desaturates oxygen to the 80's without oxygen. Discussion with the patient about the need for oxygen at home as well as nebulizers and he is agreeable to this as it is helping him with ambulation. Discussed in detail the highly inflammable status when using oxygen and to exercise caution, the patient understands and is agreeable. Advised the patient of the need to have referral to a lung doctor as an outpatient. Again, he voices understanding and is agreeable. REVIEW OF SYSTEMS: CONSTITUTIONAL: No fever, no chills. ENDOCRINE: No weight loss or weight gain. HEENT: No sinus drainage, no sore throat. CVS: No angina symptoms. No CHF symptoms. No palpitations. No atypical chest pain for CAD. Shortness of breath with minimal exertion. RESPIRATORY: No cough, no hemoptysis. GI: No melena. No abdominal pain. No nausea, no vomiting. : No hematuria. No polyuria. SKIN: No rash. No wounds. MUSCULOSKELETAL: No pain. ENERGY RISK MANAGEMENT ANALYST: No blackout, no dizziness. No headache. No double vision. PSYCHIATRIC: Not anxious; no depression. No suicidal thoughts. No homicidal thoughts. PHYSICAL EXAMINATION: GENERAL: Lying in bed in no distress. VITAL SIGNS: Temperature 98.3 F, Pulse 112, Respiratory Rate 20, BP 136/71, Pulse Ox 88% HEENT: Normocephalic, atraumatic. Mucosa is dry, pallor positive. NECK: No JVP, no carotid bruit. No lymphadenopathy. CARDIAC: S1, S2, no S3. No murmur, gallop or regurgitation. LUNGS: Decreased with basilar crackles. ABDOMEN: Soft, non-tender. Bowel sounds active. No rigidity, guarding or CVA tenderness. EXTREMITIES: No clubbing, cyanosis or edema. NEUROLOGIC: Awake, alert and oriented x3. LYMPHATIC: No palpable lymph nodes SKIN: Not dry. Intact. MUSCULOSKELETAL: No joint swelling. LAB REVIEW: 11/28/16 04:47 11/28/16 04:47 11/28/16 04:47: WBC 8.24, RBC 5.24, Hgb 13.2 L, Hct 42.1, MCV 80.3, MCH 25.2 L, MCHC 31.4 L, RDW Coeff of Kathy 15.0 H, Plt Count 396, Immature Gran % (Auto) 1.3 , Neut % (Auto) 48.6, Lymph % (Auto) 38.0, [place] % (Auto) 8.5, Eos % (Auto) 3.2, Baso % (Auto) 0.4, Immature Gran # (Auto) 0.1, Neut # 4.0, Lymph # 3.1, [place] # 0.7, Eos # 0.3, Baso # 0.0, Sodium 138, Potassium 4.0, Chloride 97 L, Carbon Dioxide 34 H, Anion Gap 11.0, BUN 17, Creatinine 0.85, Estimated GFR (MDRD) 92.00, BUN/Creatinine Ratio 20.00, Glucose 127 H, Calcium 9.3, Total Bilirubin 0.42, AST 28, ALT 38, Alkaline Phosphatase 69, Total Protein 7.0, Albumin 2.7 L , Globulin 4.3, Albumin/Globulin Ratio 0.63 ASSESSMENT: 1. COPD EXACERBATION SECONDARY TO BILATERAL PNEUMONIA 2. HYPOXEMIA SECONDARY TO ABOVE 3. ANEMIA 4. UTI, RESOLVED PLAN: 1. Keflex for five more days 2. Medrol dosepak 3. Tussionex 4. Duonebs 5. Probiotics/yogurt 6. Three -Step 7. Counseling for smoking is done. The patient states that he does not smoke anymore. Plan and coordination of the patient's care discussed in the presence of Anesthetic Assistant and nurse. CONDITION: Stable SCRIBED BY: NICOLE CAMARENA Piston Maker scribed while in presence of service performed by Dr. ADALBERTO RAMOS on 11/28/16 ([id number])
[2016-11-28 10:18] VITALS: TEMP 97.5
[2016-11-28] MEDS: HUMULIN R SUBCUT PRN (11:18)
[2016-11-28 14:12] VITALS: BP 112/70
--- NOTE | 2016-11-30 12:53 | DS ---
DATE OF SERVICE: 11/28/16 FINAL DIAGNOSIS: 1. COPD exacerbation secondary to the bilateral community acquired pneumonia 2. Hypoxemia secondary to the COPD 3. Urinary tract infection organism e-coli 4. Anemia 5. Hypertension 6. History of tonsillectomy 7. Peripheral vascular disease 8. Osteoarthritis 9. History of nicotine use DISCHARGE INSTRUCTIONS: Discharge the patient home. Followup in the [facility] on 12/14/16. [facility] will deliver with oxygen. Pulmonary rehab discussed and wants to think about it. MEDICATIONS AT DISCHARGE: Symbicort Spiriva ProAir. NEW PRESCRIPTIONS: Tussionex DUO NEBS three times a day Keflex 500mg twice a day for 5 more days. Medrol-Dose pack DIET INSTRUCTIONS: Cardiac and healthy ACTIVITY: Use your oxygen 3.5-4 liters if you are outside the home. Gradually increase the exercise and activity. SMOKING: Counseling for smoking done. DISEASE SPECIFIC EDUCATION: Smoking and lung cancer Oxygen use; explained about the highly inflammable oxygen. The patient verbalized understanding. HOSPITAL COURSE: Eric Shannon who is a 61 year old male with a history of COPD; smoker came to the emergency room with cough and congestion. He was seen in the emergency room by Dr. Shearer. ABG showed the pH 7.44, pCO2 37.0, pO [address] chest showed bilateral pneumonia. CT of abdomen showed the thickening of the bladder wall; cystitis. At that time the patient is admitted to the hospital for IV antibiotics and the breathing treatments and steroids. Urine grew e-coli and the urine was positive for the leukocyte esterase and the nitrates. Start with the given dose of Solu-Medrol and DUO NEBS. The patient was gradually feeling better and he was having difficulty urinating so Flomax was started on the patient in review of prostate enlargement questionable which did help him tremendously in his urine flow and doesn't have the use the pressure after starting the Flomax. Gradually his hgb was dropping but it was steady after 11.7 and 11.2. Uneventful hospital stay. The patient was still needing the oxygen and at that time he was evaluated with the three step and has been qualified for the oxygen. Use of oxygen and risks of the oxygen been discussed with patient and verbalized understanding. TIME SPENT: More than 50 minutes. MTDD
--- NOTE | 2016-11-30 13:44 | PN ---
DATE OF SERVICE: 11/27/16 SUBJECTIVE: The patient was admitted with the COPD exacerbation and the urinary tract infection. The patient still getting the desaturation even with the 4 liters with minimal exertion, cough and congestion. Urine is getting more clear now and not hurting or burning. The patient is being started on the Flomax also. No fever. REVIEW OF SYSTEMS: CONSTITUTIONAL: No fever, no chills. HEENT: Normal. ENDOCRINE: No weight gain, no weight loss. CVS: No angina symptoms. No CHF symptoms. No palpitations. No atypical chest pain for CAD. No shortness of breath. No PND, no orthopnea. RESPIRATORY: No cough, no hemoptysis. GI: No nausea, no vomiting. No abdominal pain. : No hematuria. No polyuria. MUSCULOSKELETAL:. No joint swelling. PSYCHIATRIC: Not anxious. No depression. No suicidal thoughts. No homicidal thoughts. SKIN: Intact. No rash. PHYSICAL EXAMINATION: V/S: Blood pressure 139/81, respiratory rate 20, heart rate 95 and temperature 97.0 and saturation is 93 on 3 liters. HEENT: Normocephalic, atraumatic. Mucosa Dry. NECK: Supple. No JVD, no carotid bruit. No lymphadenopathy. LUNGS: Decreased and some crackles on the bottom. No rales or rhonchi. HEART: S1, S2 normal. No S3. No murmur, gallop or regurgitation. ABDOMEN: Soft, nontender. Bowel sounds active. No rigidity. No rebound or guarding. No CVA tenderness. No suprapubic tenderness. EXTREMITIES: No clubbing, cyanosis or pedal edema. MUSCULOSKELETAL: No joint swelling. NEUROLOGIC: Awake, alert, oriented times three. No focal deficit. LYMPHATIC: No lymph nodes palpable. SKIN: Intact. LABS: WBC 7.36, hgb 11.7, hct 38.4, plt count 336, Sodium 141, potassium 4.3, chloride 99, bicarb 36, BUN 15, creatinine 0.74. ASSESSMENT: 1. COPD exacerbation secondary to the bilateral pneumonia 2. Hypoxemia secondary to the COPD 3. UTI, e-coli 4. BPH PLAN: 1. Continue Rocephin and Azithromycin 2. Will stop IV fluids 3. Give a dose of Lasix 40mg 4. Continue DUO NEBS Will follow up with the patient in daily rounds. TIME SPENT: More than 30 minutes MTDD
--- NOTE | 2016-11-30 14:09 | PN ---
DATE OF SERVICE: 11/26/16 SUBJECTIVE: The patient was admitted with the bilateral pneumonia and urinary tract infection. Urine did grow e-coli and sensitive. No fever. Still has the shortness of breath and desaturation with minimal exertion. REVIEW OF SYSTEMS: CONSTITUTIONAL: No fever, no chills. HEENT: Normal. ENDOCRINE: No weight gain, no weight loss. CVS: No angina symptoms. No CHF symptoms. No palpitations. No atypical chest pain for CAD. No shortness of breath. No PND, no orthopnea. RESPIRATORY: No cough, no hemoptysis. GI: No nausea, no vomiting. No abdominal pain. : No hematuria. No polyuria. MUSCULOSKELETAL:. No joint swelling. PSYCHIATRIC: Not anxious. No depression. No suicidal thoughts. No homicidal thoughts. SKIN: Intact. No rash. PHYSICAL EXAMINATION: V/S:blood pressure 154/83, respiratory rate 18, heart rate 84, temperature 97.5 and saturation 92% on 4 liters. HEENT: Normocephalic, atraumatic. Mucosa Dry. Pallor positive. No icterus. NECK: Supple. No JVD, no carotid bruit. No lymphadenopathy. LUNGS: Decreased and some basilar crackles and expiratory wheeze. No rales or rhonchi. HEART: S1, S2 normal. No S3. No murmur, gallop or regurgitation. ABDOMEN: Soft, nontender. Bowel sounds active. No rigidity. No rebound or guarding. No CVA tenderness. EXTREMITIES: No clubbing, cyanosis or pedal edema. MUSCULOSKELETAL: No joint swelling. NEUROLOGIC: Awake, alert, oriented times three. No focal deficit. LYMPHATIC: No lymph nodes palpable. SKIN: Intact. LABS: WBC 6.97, hgb 11.2, hct 36.6, plt count 287, sodium 141, potassium 4.6, chloride 102, bicarb 33, BUN 23, Creatinine 0.81. ASSESSMENT: 1. COPD exacerbation secondary to the bilateral pneumonia 2. Anemia, probably from the Anemia of chronic disease 3. UTI, organism e-coli 4. Hypoxemia from the COPD 5. BPH PLAN: 1. Continue the Rocephin 2. Lovenox 3. DUO NEBS 4. IV fluids TIME SPENT: More than 30 minutes MTDD
--- NOTE | 2016-12-30 14:48 | HP ---
DATE OF SERVICE: 11/23/16 CHIEF COMPLAINT/HISTORY OF PRESENT ILLNESS: The patient is brought by the family as the patient is having fever, chills, diarrhea, urinary burning, frequency, urgency, painful urination for four days, and incontinence. Also, diarrhea, non bloody. No nausea, vomiting or constipation. The patient is seen by Dr. Shearer in the emergency room for the same reason. White count was normal. Bands were 14. BUN and creatinine are normal. Urine was cloudy, nitrites positive. Leukocyte esterase 3+. Serology is negative. Fever with temperature 103.8. CT abdomen ad pelvis was done in the emergency room which showed bladder wall thickening, cystitis, bibasilar bronchial thickening and nodular densities. At that time, the patient is admitted to the hospital for IV antibiotics and breathing treatments. REVIEW OF SYSTEMS: CONSTITUTIONAL: No fever, no chills. HEENT: Normal. ENDOCRINE: No weight gain; no weight loss. CVS: No chest pain. No PND, no orthopnea. No shortness of breath. No PND, no orthopnea. RESPIRATORY: Cough, congestion. GI: No nausea, no vomiting. No abdominal pain. No melena. : Burning and frequency of urination. MUSCULOSKELETAL: Back pain. PSYCHIATRIC: Not anxious. No depression. No suicidal thoughts. No homicidal thoughts. SKIN: Intact, no open lesions. PAST MEDICAL HISTORY: 1. Peripheral vascular disease 2. COPD 3. Pneumonia, history of 4. GERD 5. Osteoarthritis 6. Nicotine use PAST SURGICAL HISTORY: 1. Bilateral hip pain 2. Left shoulder replacement 3. Tonsillectomy PERSONAL HISTORY: The patient does smoke. Drinks alcohol occasionally. , lives with . FAMILY HISTORY: Significant for bladder cancer and heart problems. MEDICATIONS: (HOME) 1. Symbicort 2. Spiriva 3. ProAir ALLERGIES: CODEINE PHYSICAL EXAMINATION: V/S: BP 85/71, respiratory rate 24, heart rate 90, temperature 101.8, heart rate 113. HEENT: Atraumatic, normocephalic. No scleral icterus. Pallor positive. Mucosa dry. NECK: Supple. No JVD, no bruit. No lymphadenopathy. No thyromegaly. HEART: S1, S2 normal. No murmur. No cyanosis or clubbing. No ascites. LUNGS: Bilateral entry is decreased and clear to auscultation. No rales or rhonchi. ABDOMEN: Soft, nontender. Bowel sounds are active. No CVA tenderness. No rigidity or guarding. EXTREMITIES: No cyanosis, clubbing or pedal edema. MUSCULOSKELETAL: Normal joints, no swelling. NEUROLOGIC: The patient is awake, alert, sick looking sitting in the bed. No CVA tenderness. SKIN: Intact; no open lesions. LYMPHATIC: No lymph nodes palpable. LABS: White count 8.70, hemoglobin 13.6, hematocrit 41.5, platelet count 223. Sodium 138, potassium 5.0, chloride 103, bicarb 29, BUN 25, creatinine 0.90. Urine positive for leukocyte esterase and nitrites. ASSESSMENT: 1. ACUTE URINARY TRACT INFECTION 2. UPPER RESPIRATORY INFECTION 3. HYPERTENSION 4. DYSLIPIDEMIA 5. COPD 6. OSTEOARTHRITIS PLAN: 1. Admit the patient to the regular floor. 2. CBC,CMP today and daily. 3. Cardiac enzymes and troponin. 4. IV fluids.at 75 mL/hr 5. Toradol for pain. 6. Dexamethasone 7. Duonebs 8. Rocephin 1 gm daily 9. Azithromycin 250 mg p.o. IV daily 10. Daily I & O's TIME SPENT: More than 70 minutes [facility]
== END 2016-11-28 15:24 | disposition home or self-care (01) | DRG 689 ==
LOC: ED 06:27 → MEDSURG B 08:32
PROVIDERS: ADMIT Emergency Medicine; ATTEND Emergency Medicine
DX: N30.00 Acute cystitis without hematuria (principal); J18.9 Pneumonia, unspecified organism; J44.1 Chronic obstructive pulmonary disease with (acute) exacerbation; B96.20 Unspecified Escherichia coli [E. coli] as the cause of diseases classified elsewhere; R06.02 Shortness of breath; R09.02 Hypoxemia; D64.9 Anemia, unspecified; I10 Essential (primary) hypertension; I73.9 Peripheral vascular disease, unspecified; M19.90 Unspecified osteoarthritis, unspecified site; F17.200 Nicotine dependence, unspecified, uncomplicated; Z79.899 Other long term (current) drug therapy
CPT/HCPCS: 36415; 51798; 80053; 81001; 82150; 82803; 82962; 83036; 83605; 83690; 84145; 85007; 85025; 87040; 87086; 87186; 87651; 87804; 87880; 93005; 93010; 94640; 94761; 96361; 96365; 96375; 99223; 99233; 99239; 99284

== ENCOUNTER 2017-12-15 21:36 | Emergency (ER) | payer OTHER ==
[2017-12-15 21:47] VITALS: BP 142/80; TEMP 100.5; BMI 23.3
[2017-12-15] MEDS ORDERED: BACTRIM DS 800/160 MG PO STA (21:56)
--- NOTE | 2017-12-15 22:06 | ED.PDOC ---
General ED Provider: Dr. ADALBERTO RAMOS Chief Complaint: Non-specific Complaint Stated Complaint: Has swelling in left arm, it started draining pus, does not knopw if it was a bite Time Seen by Physician: 22:04 Mode of Arrival: Walk-In Information Source: Patient, Family Primary Care Provider: ADALBERTO RAMOS-[facility] Nursing and Triage Documentation Reviewed and Agree: Yes Reviewed sepsis parameters & appropriate labs ordered?: Yes System Inflammatory Response Syndrome: Pulse >90 BPM Sepsis Protocol: For patient's 13 years and over: Temp is 96.8 and below OR 101 and greater Pulse >90 BPM Resp >20/minute Acutely Altered Mental Status Are patient's symptoms suggestive of a new infection, such as: -Pneumonia -Skin, Soft Tissue -Endocarditis -UTI -Bone, Joint Infection -Implantable Device -Acute Abdominal Infection -Wound Infection -Meningitis -Blood Stream Catheter Infection -Unknown Skin Complaint Exam - Skin/Soft Tissue Complaint/Exam Symptoms Are: Still present Timing: Constant Initial Severity: Moderate Current Severity: Moderate Character: Reports: Redness, Swelling, Raised, Painful Aggravating: Reports: Touch Alleviating: Reports: None Associated Signs and Symptoms: Reports: Itching, Tenderness, Red streaks. Denies: Fever, Chills, Drainage, Bruising, Joint swelling Related Surgical History: Reports: None Recent Exposure to Others w/Similar Symptoms: No Skin Findings: Present: Erythema, Induration, Fluctuant mass Differential Diagnoses: Abscess Review of Systems - Review Of Systems Constitutional: Reports: No symptoms Eyes: Reports: No symptoms Ears, Nose, Mouth, Throat: Reports: No symptoms Respiratory: Reports: Cough, Short of air Cardiac: Reports: No symptoms GI: Reports: No symptoms : Reports: No symptoms Musculoskeletal: Reports: No symptoms Skin: Reports: Lesions Neurological: Reports: No symptoms Endocrine: Reports: No symptoms Hematologic/Lymphatic: Reports: No symptoms All Other Systems: Reviewed and Negative Past Medical History - Past Medical History Previously Healthy: Yes Endocrine: Reports: None Cardiovascular: Reports: None Respiratory: Reports: COPD Hematological: Reports: None Gastrointestinal: Reports: None Genitourinary: Reports: Kidney stones ( 2014 ago ?-never evaluated) Neuro/Psych: Reports: Unknown Musculoskeletal: Reports: Arthritis Cancer: Reports: None - Surgical History General Surgical History: Reports: Tonsillectomy (AND right tympanoplasty), Orthopedic (bilateral hip replacement ( and bilateral revisions); left reverse shoulder replacement; right knee arthroscopy), Back Surgery ([id number]?fusion) - Family History Family History: Reports: Unknown - Social History Smoking Status: Current every day smoker, Light tobacco smoker Smoking Cessation Counseling Time: > 3 min - 10 min Hx Substance Use: No Alcohol Screening: Occasionally - Immunizations Tetanus Shot up to Date: No Physical Exam - Physical Exam Appearance: Well-appearing, No pain distress, Well-nourished Eyes: JAMIE, EOMI, Conjunctiva clear ENT: Ears normal, Nose normal, Oropharynx normal Respiratory: Airway patent, Breath sounds clear, Breath sounds equal, Respirations nonlabored Cardiovascular: RRR, Pulses normal, No rub, No murmur GI/: Soft, Nontender, No masses, Bowel sounds normal, No Organomegaly Musculoskeletal: Normal strength, ROM intact, No edema, No calf tenderness Skin: Warm, Dry, Normal color Neurological: Sensation intact, Motor intact, Reflexes intact, Cranial nerves intact, Alert, Oriented Psychiatric: Affect appropriate, Mood appropriate Critical Care Note - Critical Care Note Total Time (mins): 30 Course - Course Orders, Labs, Meds: Orders Category Date Time Status CBC W/ AUTO DIFF Stat LAB 12/15/17 21:56 Ordered COMPREHENSIVE METABOLIC PANEL Stat LAB 12/15/17 21:56 Ordered Sulfamethoxazole/Trimethoprim [Bactrim Ds 800/160 mg] MEDS 12/15/17 21:56 Discontinued 1 tab PO ONCE STA Medications Discontinued Medications Generic Name Dose Route Start Last Admin Trade Name Freq PRN Reason Stop Dose Admin Trimethoprim/Sulfamethoxazole 1 tab 12/15/17 21:56 12/15/17 22:01 Bactrim Ds 800/160 Mg PO 12/15/17 21:57 1 tab ONCE STA Administration Vital Signs: Temp Pulse Resp BP Pulse Ox 12/15/17 21:37 100.5 F H 123 H 22 142/80 H 89 L Departure - Departure Time of Disposition: 22:08 Disposition: HOME SELF-CARE Discharge Problem: Skin abscess Qualifiers: Site of cutaneous abscess: extremity Site of cutaneous abscess of extremity: upper extremity Laterality: left Qualified Code(s): L02.414 - Cutaneous abscess of left upper limb Instructions: Abscess (ED) Condition: Stable Pt referred to PMD for follow-up: Yes IPMP verified?: No Additional Instructions: skin hygiene Take medication with food. f/u [facility] in 3-4 days Prescriptions: Sulfamethoxazole/Trimethoprim [Bactrim Ds 800/160 mg] 1 tab PO Q12HR #20 tablet Allergies/Adverse Reactions: Allergies codeine Adverse Reaction (Mild, Verified 12/15/17 21:42) nausea Patient to notify drugstore. Home Medications: Ambulatory Orders Albuterol Sulfate 0.083% Neb [Albuterol 0.083% Neb] 1 vial INH Q4H PRN 12/15/17 Sulfamethoxazole/Trimethoprim [Bactrim Ds 800/160 mg] 1 tab PO Q12HR #20 tablet 12/15/17 Disposition Discussed With: Patient, Family
--- NOTE | 2017-12-15 23:23 | CT ---
Exam: CT of the chest without contrast History: Shortness of breath Technique: [address] of the chest without intravascular contrast FINDINGS: The lung windows show no infiltrative opacities. Generalized hyperexpansion is present. Atherosclerotic calcification of the aorta and coronary arteries. No pathologic lymph node enlargeme nt or abundance. Left shoulder arthroplasty. No acute chest wall abnormality is seen. Prior healed left rib fracture. No acute findings of the upper abdomen. Impression: 1. No acute abnormalities of the chest 2. Chronic obstructive pulmonary disease
[2017-12-15] MEDS ORDERED: ROCEPHIN IM STA (23:30)
[2017-12-15] MEDS ORDERED: LIDOCAINE HCL 1% SDV IM STA (23:30)
== END 2017-12-15 23:59 | disposition home or self-care (01) ==
LOC: ED 21:36
DX: L02.414 Cutaneous abscess of left upper limb (principal); R05 Cough; R06.02 Shortness of breath; F17.210 Nicotine dependence, cigarettes, uncomplicated
CPT/HCPCS: 36415; 80053; 83605; 84145; 85025; 96372; 99283